=== PATIENT | female | born 1940 | race Caucasian/White ===

== ENCOUNTER 2017-06-05 16:06 | Emergency (ER) | payer MEDICARE, OTHER ==
[~2017-06-05] VITALS: Ht 162.6 cm; Wt 59.1 kg
[2017-06-05] MEDS ORDERED: ESOM20CA31 PO (16:09)
[2017-06-05] MEDS ORDERED: METO50 PO (16:09)
[2017-06-05] MEDS ORDERED: LEFL10TA15 PO (16:09)
[2017-06-05] MEDS ORDERED: ENAL2.5 PO (16:09)
[2017-06-05] MEDS ORDERED: CLOP75 PO (16:09)
[2017-06-05] MEDS ORDERED: CloNIDine HCL 0.1 MG TABLET PO ONE (18:45)
[2017-06-05 19:28] VITALS: BP 222/92
== END 2017-06-05 20:16 | disposition home or self-care (01) ==
LOC: EMS 16:07
DX: S00.03XA Contusion of scalp, initial encounter (principal); M50.30 Other cervical disc degeneration, unspecified cervical region; I10 Essential (primary) hypertension; Z86.73 Personal history of transient ischemic attack (TIA), and cerebral infarction without residual deficits; Z88.8 Allergy status to other drugs, medicaments and biological substances; Z91.041 Radiographic dye allergy status; W19.XXXA Unspecified fall, initial encounter; Y93.89 Activity, other specified; Y92.89 Other specified places as the place of occurrence of the external cause; Y99.8 Other external cause status
CPT/HCPCS: 70450; 72125; 93005; 99285